=== PATIENT | male | born 2000 | race American Indian/Alaskan Native ===

== ENCOUNTER 2021-08-18 09:49 | Emergency (ER) | payer MEDICAID ==
[2021-08-18 10:04] VITALS: BP 137/95
== END 2021-08-19 02:30 ==
LOC: ED 09:49
DX: M25.559 Pain in unspecified hip (principal); M54.50 Low back pain, unspecified; Z53.21 Procedure and treatment not carried out due to patient leaving prior to being seen by health care provider